=== PATIENT | male | born 1975 | race Caucasian/White ===

== ENCOUNTER 2019-11-24 18:30 | Emergency (ER) | payer OTHER ==
[2019-11-24] MEDS ORDERED: LIDOCAINE/PRILOCAINE 2.5% 30 GM TUBE TOP ONE (18:42)
[2019-11-24] MEDS ORDERED: COCAINE HCL 4 % 4 ML BTTL ONE (18:44)
[2019-11-24 18:55] VITALS: O2SAT 100
[2019-11-24] MEDS ORDERED: LIDOCAINE 1% W/ EPINEPHRINE 20 ML VIAL INJ ONE (18:55)
[2019-11-24] MEDS ORDERED: NEOMYCIN-BACITRACIN-POLYMYXIN 0.9 GM UD TOP ONE (19:20)
[2019-11-24] MEDS ORDERED: CHLORHEXIDINE GLUCONATE 4 % 15 ML UD TOP ONE (19:20)
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
[2019-11-24 19:55] VITALS: BP 153/93; TEMP 97.1
== END 2019-11-24 19:40 | disposition home or self-care (01) ==
LOC: ER 18:30
DX: S81.811A Laceration without foreign body, right lower leg, initial encounter (principal); J45.909 Unspecified asthma, uncomplicated; W25.XXXA Contact with sharp glass, initial encounter; Y93.89 Activity, other specified; Y92.9 Unspecified place or not applicable; Z79.899 Other long term (current) drug therapy; Z88.0 Allergy status to penicillin